=== PATIENT | female | born 1985 | race Caucasian/White ===

== ENCOUNTER 2022-02-12 22:00 | Emergency (ER) | payer OTHER ==
[2022-02-13] MEDS ORDERED: NORCO 5-325 TA1 EACH PO (03:29)
== END 2022-02-13 03:55 | disposition home or self-care (01) ==
LOC: FER 22:00
DX: S06.0X0A Concussion without loss of consciousness, initial encounter (principal); S00.03XA Contusion of scalp, initial encounter; M54.2 Cervicalgia; F17.290 Nicotine dependence, other tobacco product, uncomplicated; W20.8XXA Other cause of strike by thrown, projected or falling object, initial encounter; Y92.89 Other specified places as the place of occurrence of the external cause; Y99.0 Civilian activity done for income or pay; Z28.310 Unvaccinated for COVID-19
CPT/HCPCS: 70450; 72125